=== PATIENT | female | born 1960 | race Two or more races ===

== ENCOUNTER → 2017-07-22 | Outpatient (CLI) | payer OTHER | LOC: BMCIMAGING 10:38 | PROVIDERS: ATTEND Podiatrist Foot & Ankle Surgery | DX: M19.071 Primary osteoarthritis, right ankle and foot (principal) ==

== ENCOUNTER → 2018-01-11 | Outpatient (CLI) | payer OTHER | LOC: FIMAGING 13:00 | PROVIDERS: ATTEND Nurse Practitioner | DX: Z12.31 Encounter for screening mammogram for malignant neoplasm of breast (principal) ==

== ENCOUNTER 2018-04-11 11:57 | Day surgery (SDC) | payer OTHER ==
[2018-04-11] MEDS ORDERED: LR 1,000 ML IV ONE (12:10)
[2018-04-11] MEDS ORDERED: PROPOFOL/EMULSION 500 MG/50 ML BOTTLE IV ONE (13:55)
[2018-04-11] MEDS ORDERED: LIDOCAINE 2% 2 ML INJ ONE ×2 (13:55)
--- NOTE | 2018-04-11 13:55 | PDGENHP ---
History & Physical Chief Complaint: hx polyps History of Present Illness: 57 year old female presents for surveillance colonoscopy. Pertinent Past, Social, Family History: PMHx, PSurgHx: See anesthesia notes. Relevant Physical Exam: HEENT: anicteric. Cv: RRR +s1s2. lungs: CTAB No w/r/ r. Abd: soft, Nt, + bs Cardiorespiratory Assessment: ASA 2
[2018-04-11] MEDS ORDERED: MIDAZOLAM 2 MG/2 ML VIAL ONE (14:04)
--- NOTE | 2018-04-11 14:07 | PDANEPAE ---
ANE History of Present Illness colon ANE Past Medical History - Cardiovascular History Hx Hypertension: No Hx Arrhythmias: No Hx Chest Pain: No Hx Coronary Artery / Peripheral Vascular Disease: No Hx CHF / Valvular Disease: No Hx Palpitations: No - Pulmonary History Hx COPD: No Hx Asthma/Reactive Airway Disease: No Hx Recent Upper Respiratory Infection: No Hx Oxygen in Use at Home: No Hx Sleep Apnea: No Sleep Apnea Screening Result - Last Documented: Negative - Neurologic History Hx Cerebrovascular Accident: No Hx Seizures: No Hx Dementia: No - Endocrine History Hx Diabetes: No - Renal History Hx Renal Disorders: No - Liver History Hx Hepatic Disorders: No - Neurological & Psychiatric Hx Hx Neurological and Psychiatric Disorders: Yes Neurological / Psychiatric History Comment: depression - Cancer History Hx Cancer: No - Congenital Disorder History Hx Congenital Disorders: No - GI History Hx Gastrointestinal Disorders: No - Other Health History Other Health History: none - Chronic Pain History Chronic Pain: No - Surgical History Prior Surgeries: colonoscopies. breast biopsy 5 yrs and 2017 ANE Review of Systems Review of Systems: - Exercise capacity METS (RN): 4 METS ANE Patient History - Allergies Allergies/Adverse Reactions: cephalexin Allergy (Verified 02/07/18 16:45) Hives - Home Medications Home Medications: Aleve 02/07/18 [Last Taken 04/06/18] Tylenol 02/07/18 [Last Taken 04/10/18] Vitamin B-12 02/07/18 [Last Taken 04/06/18] buPROPion 02/07/18 [Last Taken 04/10/18] Cholecalciferol (Vitamin D3) 03/15/18 [Last Taken 04/06/18] - NPO status NPO Status: no food or drink >8 hours NPO Since - Liquids (Date): 04/11/18 NPO Since - Liquids (Time): 03:00 NPO Since - Solids (Date): 04/09/18 NPO Since - Solids (Time): 18:00 - Anes Hx Anes Hx: post operative nausea and vomiting - Smoking Hx Smoking Status: Never smoked - Family Anes Hx Family Hx Anesthesia Complications: none ANE Labs/Vital Signs - Vital Signs Blood Pressure: 130/77 Heart Rate: 66 Respiratory Rate: 15 O2 Sat (%): 99 Height: 167.64 cm Weight: 62.596 kg ANE Physical Exam - Airway Mallampati Score: Class 2 Mouth exam: normal dental/mouth exam - Pulmonary Pulmonary: no respiratory distress - Cardiovascular Cardiovascular: regular rate and rhythym - ASA Status ASA Status: I ANE Anesthesia Plan Anesthesia Plan: GA with mask, MAC
[2018-04-11] MEDS ORDERED: fentaNYL 100 MCG/2 ML INJ IVP PRN (14:12)
[2018-04-11] MEDS ORDERED: ONDANSETRON 4 MG/2 ML VIAL IVP PRN (14:12)
[2018-04-11] MEDS ORDERED: NALOXONE HCL 0.4 MG/ML INJ IVP PRN (14:12)
[2018-04-11] MEDS ORDERED: PROMETHAZINE HCL 25 MG/ML INJ IVP PRN (14:12)
--- NOTE | 2018-04-11 14:27 | POSTANESTH ---
Post Anesthetic Evaluation Cardiovascular Status: Normal, Stable Respiratory Status: Normal, Stable Level of Consciousness/Mental Status: Can Participate in Eval Pain Control: Adequate, Prn Tx Ordered Nausea/Vomiting Control: Adequate, Prn Tx Ordered Complications Possibly Related to Anesthesia: None Noted
--- NOTE | 2018-04-11 14:42 | GIREPORT ---
[facility] Surgical Services - Endoscopy Department Patient Name: Jumana Borden Procedure Date: 04/11/2018 1:50 PM Patient Type: Outpatient Attending MD/ ER Physician: Arcadio Alatorre MD Procedure: Colonoscopy Indications: High risk colon cancer surveillance: Personal history of colonic polyps Patient Profile: 57 year old female with a history of adenoma presents for surveillance colonoscopy. Providers: Arcadio Alatorre MD Medicines: Monitored Anesthesia Care Complications: No immediate complications. Estimated blood loss: None. Description of Procedure: After obtaining informed consent, the scope was passed under direct vis ion. Throughout the procedure, the patient's blood pressure, pulse, and oxyg en saturations were monitored continuously. The Colonoscope was introduced through the anus and advanced to the cecum, identified by appendiceal orifice and ileocecal valve. The colonoscopy was performed without difficulty. The patient tolerated the procedure well. The quality of th e bowel preparation was good. The ileocecal valve, appendiceal orifice, a nd rectum were photographed. Findings: The perianal and digital rectal examinations were normal. Pertinent negatives include no palpable rectal lesions. Diverticula were found in the sigmoid colon. Estimated Blood Loss: Estimated blood loss: none. Post Op Diagnosis: - Diverticulosis in the sigmoid colon. - No specimens collected. Recommendation: - Discharge patient to home (with escort). - Resume previous diet. - Continue present medications. - Repeat colonoscopy in 5 years for surveillance. - Use fiber, for example Citrucel, Fibercon, Konsyl or Metamucil. - Thank you for allowing me to participate in the care of your patient. Attending Participation: I personally performed the entire procedure. Arcadio Alatorre MD Arcadio Alatorre MD 04/11/2018 2:42:10 PM This report has been signed electronicallyArcadio Alatorre MD Number of Addenda: 0 Note Initiated On: 04/11/2018 1:50 PM Total Procedure Duration Time 0 hours 18 minutes 38 seconds [email or web address]
[2018-04-11 15:16] VITALS: BP 101/74
== END 2018-04-11 15:31 | disposition home or self-care (01) ==
LOC: FSGY 11:57
PROVIDERS: ATTEND Internal Medicine Gastroenterology
PROC: 0DJD8ZZ Inspection of Lower Intestinal Tract, Via Natural or Artificial Opening Endoscopic (ICD-10-PCS; principal; 2018-04-11 13:15)
DX: Z12.11 Encounter for screening for malignant neoplasm of colon (principal); K57.30 Diverticulosis of large intestine without perforation or abscess without bleeding; Z86.010 Personal history of colon polyps
CPT/HCPCS: J2250; J2704